=== PATIENT | female | born 1975 | race Caucasian/White ===

== ENCOUNTER 2018-03-02 12:34 | Day surgery (SDC) | payer OTHER ==
[~2018-03-02 12:34] MED LIST: metroNIDAZOLE 500 MG/100 ML NS IVPB
[2018-03-02] MEDS ORDERED: PROPOFOL 20 ML (15:06)
[2018-03-02] MEDS ORDERED: CEFAZOLIN 1 GM INJ (15:06)
[2018-03-02] MEDS ORDERED: ROCURONIUM 50 MG INJ (15:06)
[2018-03-02] MEDS ORDERED: FENTAnyl 50 MCG/ML VIAL (15:06)
[2018-03-02] MEDS ORDERED: MIDAZOLAM 1 MG/ML 2 ML INJ (15:06)
[2018-03-02] MEDS ORDERED: LABETALOL HCL 20MG INJ IV (15:30)
[2018-03-02] MEDS ORDERED: METOCLOPRAMIDE 10 MG INJ IV (15:30)
[2018-03-02] MEDS ORDERED: ONDANSETRON 4 MG INJ IV ×2 (15:30→17:00)
[2018-03-02] MEDS ORDERED: FENTAnyl 50 MCG/ML VIAL IV ×3 (15:30)
[2018-03-02] MEDS ORDERED: HYDROmorphONE 1 MG/5 ML IV SYRINGE IV ×3 (15:30)
[2018-03-02] MEDS ORDERED: EPHEDrine SULFATE 50 MG/5 ML SYG IV (15:30)
[2018-03-02] MEDS ORDERED: DEXAMETHASONE 4 MG/ML 5 ML INJ (16:49)
[2018-03-02] MEDS ORDERED: KETOROLAC 30 MG INJ (16:49)
[2018-03-02] MEDS ORDERED: METOCLOPRAMIDE 10 MG INJ (16:49)
[2018-03-02] MEDS ORDERED: ONDANSETRON 4 MG INJ (16:49)
[2018-03-02] MEDS: BUPIVACAINE 0.5% (SDV) 30 ML INJ (16:50)
[2018-03-02] MEDS: LIDOCAINE 1%/EPI (1:100,000) (MDV) 20 ML (16:50)
[2018-03-02] MEDS ORDERED: MEPERIDINE /PF (100 MG/2 ML) AMPULE (16:54)
[2018-03-02] MEDS ORDERED: KETOROLAC 30 MG INJ IV (17:00)
[2018-03-02] MEDS ORDERED: HYDROCODONE/APAP (5/325) TAB PO ×2 (17:00)
== END 2018-03-02 18:47 | disposition home or self-care (01) ==
LOC: SDS 12:34
DX: K64.8 Other hemorrhoids (principal); K64.4 Residual hemorrhoidal skin tags
CPT/HCPCS: 46255; 82962; 88302; 88305